=== PATIENT | female | born 1980 ===

== ENCOUNTER 2017-08-20 10:58 | Emergency (ER) | payer OTHER ==
[2017-08-20 11:35] LABS: RBC URINE 1 /hpf (0-3); URINE BILIRUBIN NEGATIVE (NEGATIVE); URINE BLOOD NEGATIVE (NEGATIVE); URINE COLOR Yellow (YELLOW); URINE GLUCOSE (UA) NORMAL (Normal); URINE KETONE NEGATIVE (NEGATIVE); URINE LEUKOCYTE ESTERASE NEG Leu/uL (Negative); URINE PROTEIN NEGATIVE (NEGATIVE); URINE UROBILINOGEN NORMAL mg/dL (0.2-1.0); WBC URINE < 1 /hpf (0-5)
--- NOTE | 2017-08-20 12:15 | C.PDOC ---
History Of Present Illness 36 year old female presents to the ED for evaluation of right-mid back x 1 week. Patient denies trauma. States symptoms are localized and worse with movement. Patient has not taken any pain meds. R MID BACK PAIN X 1 WEEK. NO TRAUMA LOCALIZED WORSE W MOVEMENT. NO PAIN MEDS TRIED. NAD BACK +SPASM R MID BACK AROM WO DIFF REMAINDER NEG Time Seen by Provider: 08/20/17 11:58 Chief Complaint (Nursing): Back Pain History Per: Patient History/Exam Limitations: no limitations Onset/Duration Of Symptoms: Hrs Current Symptoms Are (Timing): Still Present Quality Of Discomfort: "Pain" Previous Symptoms: Back Pain Associated Symptoms: denies: Incontinence, New Weakness, New Numbness Exacerbating Factor(s): Movement Additional History Per: Patient Past Medical History Reviewed: Historical Data, Nursing Documentation, Vital Signs Vital Signs: Last Vital Signs Temp 97.9 F 08/20/17 12:31 Pulse 68 08/20/17 12:31 Resp 18 08/20/17 12:31 BP 119/77 08/20/17 12:31 Pulse Ox 100 08/20/17 12:31 - Medical History PMH: No Chronic Diseases Surgical History: No Surg Hx Family History: States: Unknown Family Hx - Social History Hx Alcohol Use: No Hx Substance Use: No - Immunization History Hx Tetanus Toxoid Vaccination: No Hx Influenza Vaccination: No Hx Pneumococcal Vaccination: No Review Of Systems Musculoskeletal: Positive for: Back Pain (right mid-back ) Physical Exam - Physical Exam Appears: Non-toxic, No Acute Distress Skin: Normal Color, Warm, Dry Back: No Decreased ROM, Muscle Spasm (to right mid-back) Extremity: Normal ROM, Capillary Refill (less than 2 seconds ) Neurological/Psych: Oriented x3, Normal Speech, Normal Cognition Gait: Steady ED Course And Treatment O2 Sat by Pulse Oximetry: 96 (on RA) Pulse Ox Interpretation: Normal Progress Note: UA ordered and reviewed. Flexeril PO, Motrin PO, Tylenol PO, and Lidoderm TD administered. Disposition Counseled Patient/Family Regarding: Diagnosis, Need For Followup, Rx Given - Disposition Referrals: [facility] [Outside] [facility] [Outside] Disposition: HOME/ ROUTINE Disposition Time: 12:15 Condition: IMPROVED Prescriptions: Acetaminophen [Tylenol Extra Strength] 2 tab PO Q6 #30 tablet Ibuprofen [Motrin] 600 mg PO Q6 #30 tab Lidocaine 5% [Lidoderm] 1 ea TD PRN PRN #10 patch PRN Reason: Pain, Moderate (4-7) Instructions: Acute Low Back Pain (ED) Forms: [facility] (Kazakh), Work Excuse Print Language: VINCENTIAN - Clinical Impression Clinical Impression: Low back pain - Scribe Statement The provider has reviewed the documentation as recorded by the Scribe (Yahaira Moya) Provider Attestation: All medical record entries made by the Scribe were at my direction and personally dictated by me. I have reviewed the chart and agree that the record accurately reflects my personal performance of the history, physical exam, medical decision making, and the department course for this patient. I have also personally directed, reviewed, and agree with the discharge instructions and disposition.
[2017-08-20] MEDS ORDERED: Lidocaine 5% Patch TD STA (12:23)
[2017-08-20 12:32] VITALS: BP 119/77; PULSE 68; RESP 18; TEMP 97.9
[2017-08-20] MEDS ORDERED: Lidocaine 5% Patch TD ONE (12:35)
[2017-08-20 13:50] VITALS: O2SAT 96
== END 2017-08-20 12:43 | disposition home or self-care (01) ==
LOC: C.ER 10:58
DX: M54.5 Low back pain (principal)

== ENCOUNTER 2017-12-24 02:04 | Inpatient (IN) | payer OTHER ==
[2017-12-24] MEDS ORDERED: Iohexol 240 (50 ml) PO ONE (02:40)
--- NOTE | 2017-12-24 02:43 | C.PDOC ---
History Of Present Illness <Yg Chan R - Last Filed: 12/24/17 06:43> <Tez Morin M - Last Filed: 12/24/17 10:19> 37 y/o female presents to the ED complaining of right upper quadrant pain, onset around 8pm last night. Pain began after heavy alcohol intake yesterday. Patient denies any nausea, vomiting, diarrhea, or dysuria. (Yg Chan R) History Per: Patient History/Exam Limitations: no limitations Onset/Duration Of Symptoms: Days (x1) Current Symptoms Are (Timing): Still Present <Yg Chan R - Last Filed: 12/24/17 06:43> <Tez Morin M - Last Filed: 12/24/17 10:19> Time Seen by Provider: 12/24/17 02:37 Chief Complaint (Nursing): Abdominal Pain Past Medical History Reviewed: Historical Data, Nursing Documentation, Vital Signs - Medical History PMH: No Chronic Diseases Denies: Chronic Kidney Disease Surgical History: (x5) Family History: States: Unknown Family Hx - Social History Hx Alcohol Use: Yes Hx Substance Use: No - Immunization History Hx Tetanus Toxoid Vaccination: No Hx Influenza Vaccination: No Hx Pneumococcal Vaccination: No <Yg Chan - Last Filed: 12/24/17 06:43> Vital Signs: Last Vital Signs Temp 98.6 F 12/24/17 05:49 Pulse 77 12/24/17 05:49 Resp 22 12/24/17 05:49 BP 104/69 12/24/17 05:49 Pulse Ox 99 12/24/17 06:43 Review Of Systems Except As Marked, All Systems Reviewed And Found Negative. Constitutional: Negative for: Fever, Chills Gastrointestinal: Positive for: Abdominal Pain. Negative for: Nausea, Vomiting , Diarrhea Genitourinary: Negative for: Dysuria <Yg Chan - Last Filed: 12/24/17 06:43> Physical Exam - Physical Exam Appears: Non-toxic, No Acute Distress Skin: Normal Color, Warm, Dry Head: Atraumatic, Normacephalic Eye(s): bilateral: Normal Inspection, PERRL, EOMI Nose: Normal Oral Mucosa: Moist Neck: Normal ROM, Supple Chest: Symmetrical Cardiovascular: Rhythm Regular, No Murmur Respiratory: Normal Breath Sounds, No Accessory Muscle Use Gastrointestinal/Abdominal: Soft, Tenderness (to the RUQ), No Guarding, No Rebound Back: Normal Inspection, No CVA Tenderness, No Vertebral Tenderness Extremity: Bilateral: Atraumatic, No Pedal Edema, Normal Color And Temperature Neurological/Psych: Oriented x3, Normal Speech <Yg Chan R - Last Filed: 12/24/17 06:43> ED Course And Treatment - Laboratory Results Result Diagrams: 12/24/17 03:13 12/24/17 03:13 O2 Sat by Pulse Oximetry: 99 (RA) Pulse Ox Interpretation: Normal - CT Scan/US CT abdomen/pelvis Other Rad Studies (CT/US): Read By Radiologist, Radiology Report Reviewed CT/US Interpretation: FINDINGS: Limitations: Motion artifact - mild. Lower thorax: No acute findings. ABDOMEN: Liver: Fatty infiltration. Gallbladder and bile ducts: Gallstones. Mild gallbladder wall thickening. No significant ductal. dilation. Pancreas: No ductal dilation. No mass. Spleen: No splenomegaly. Adrenals: No mass. Kidneys and ureters: No mass. No hydronephrosis. Stomach and bowel: Probable underdistention of LEFT colon. No definite mural thickening. No. obstruction. Appendix: Normal caliber. No inflammation. PELVIS: Bladder: Unremarkable. Reproductive: Unremarkable as visualized. ABDOMEN and PELVIS: Intraperitoneal space: No significant fluid collection. No free air. Bones/joints: No acute fracture. Soft tissues: Pfannenstiel scar. Tiny umbilical hernia containing fat. Vasculature: Unremarkable. No aneurysm. Lymph nodes: No pathologically enlarged lymph nodes. IMPRESSION: 1. Cholelithiasis with mild gallbladder wall thickening concerning for acute cholecystitis. Consider. ultrasound. 2. Incidental/non- acute findings are described above. Thank you for allowing us to participate in the care of your patient. Dictated and Authenticated by: Eric Royal MD. 12/24/2017 5:04 AM Eastern Time ([place] & [place]) <Yg Chan R - Last Filed: 12/24/17 06:43> - Laboratory Results Result Diagrams: 12/24/17 03:13 12/24/17 03:13 <Tez Morin M - Last Filed: 12/24/17 10:19> Medical Decision Making <Yg Chan R - Last Filed: 12/24/17 06:43> <Tez Morin - Last Filed: 12/24/17 10:19> Medical Decision Making: Time: 2:40 Initial Plan: --Basic blood work --Lipase --Urinalysis --CT Abd/Pelvis w/ PO & IV contrast --IVF hydration --30 mg Toradol IVP --Pepcid 20 mg IVP 5:41 CT shows cholelithiasis with mild gallbladder wall thickening. Ordered US Abdomen 7:00 Dr. Morin to take over care, patient pending ultrasound (Yg Chan) Disposition Discussed With Dr.: Tez Morin (pending US abdomen) Doctor Will See Patient In The: ED - Disposition Disposition Time: 07:00 <Yg Chan - Last Filed: 12/24/17 06:43> Discussed With Dr.: Keira Guthrie Doctor Will See Patient In The: Hospital Counseled Patient/Family Regarding: Studies Performed, Diagnosis - Disposition Disposition Time: 10:18 <Tez Morin - Last Filed: 12/24/17 10:19> - Disposition Disposition: HOSPITALIZED Condition: FAIR Forms: [facility] [employer] [facility] ([place]) - Clinical Impression Clinical Impression: Cholecystitis, Abdominal pain - Scribe Statement The provider has reviewed the documentation as recorded by the Scribe <Yg Chan - Last Filed: 12/24/17 06:43> <Tez Morin - Last Filed: 12/24/17 10:19> - Scribe Statement Cathleen Norris (Yg Chan) Provider Attestation: All medical record entries made by the Scribe were at my direction and personally dictated by me. I have reviewed the chart and agree that the record accurately reflects my personal performance of the history, physical exam, medical decision making, and the department course for this patient. I have also personally directed, reviewed, and agree with the discharge instructions and disposition. (Yg Chan) Addendum <Yg Chan - Last Filed: 12/24/17 06:43> <Tez Morin - Last Filed: 12/24/17 10:19> Addendum: received patient in s/o pending ultrasound reading demonstrates positive gallbladder findings. Discussed with hospitalist and will admit to medical surgical floor. 12/24/17 10:17 (Tez Morin)
[2017-12-24 03:11] LABS: SQUAMOUS EPITHIAL 5 /hpf (0-5); URINE BILIRUBIN NEGATIVE (NEGATIVE); URINE BLOOD 1+ (NEGATIVE); URINE CLARITY Hazy (Clear); URINE COLOR Yellow (YELLOW); URINE GLUCOSE (UA) NORMAL (Normal); URINE LEUKOCYTE ESTERASE NEG Leu/uL (Negative); URINE PROTEIN NEGATIVE (NEGATIVE); URINE UROBILINOGEN NORMAL mg/dL (0.2-1.0)
[2017-12-24] MEDS ORDERED: Iohexol 240 (50 ml) ONE (03:13)
[2017-12-24 03:17] LABS: BASO % 0.4 % (0.0-2.0); EOS # 0.1 K/uL (0.0-0.7); EOS % 0.6 % (0.0-4.0); HEMOGLOBIN 14.2 g/dL (11.0-16.0); LYMPH # 1.8 K/uL (1.0-4.3); LYMPH % 19.7 % (20.0-40.0); MEAN CELL VOLUME 92.9 fL (81.0-99.0); MEAN CORPUSCULAR HEMOGLOBIN 32.4 pg (27.0-31.0); MEAN CORPUSCULAR HGB CONC 34.9 g/dL (33.0-37.0); MEAN PLATELET VOLUME 7.1 fL (7.2-11.7); MONO # 0.4 K/uL (0.0-0.8); MONO % 4.8 % (0.0-10.0); NEUT # 6.9 K/uL (1.8-7.0); NEUT % 74.5 % (50.0-75.0); RBC 4.39 Mil/uL (3.80-5.20); RED CELL DISTRIBUTION WIDTH 13.9 % (11.5-14.5); WHITE BLOOD COUNT 9.2 K/uL (4.8-10.8)
[2017-12-24 03:28] LABS: ALB/GLOB RATIO 1.1 (1.0-2.1); ALBUMIN 4.7 g/dL (3.5-5.0); ALT/SGPT 39 U/L (9-52); AST/SGOT 34 U/L (14-36); BLOOD UREA NITROGEN 11 mg/dL (7-17); CALCIUM 9.6 mg/dl (8.6-10.4); GFR AFRICAN-AMERICAN > 60; GFR NON-AFRICAN AMERICAN > 60; LIPASE 120 U/L (23-300)
[2017-12-24] MEDS ORDERED: Iohexol 350mg/ml 100 ML ONE (04:23)
--- NOTE | 2017-12-24 05:04 | CT ---
EXAM: CT Abdomen and Pelvis With Intravenous Contrast CLINICAL HISTORY: 37 years old, female; Pain; Abdominal pain; Additional info: Right sided abd pain TECHNIQUE: Axial computed tomography images of the abdomen and pelvis with intravenous contrast. All CT scans at this facility use one or more dose reduction techniques, viz.: automated exposure control; ma/kV adjustment per patient size (including targeted exams where dose is matched to indication; i.e. head); or iterative reconstruction technique. Coronal and sagittal reformatted images were created and reviewed. CONTRAST: 100 mL of [id number] administered intravenously. COMPARISON: No relevant prior studies available. FINDINGS: Limitations: Motion artifact - mild. Lower thorax: No acute findings. ABDOMEN: Liver: Fatty infiltration. Gallbladder and bile ducts: Gallstones. Mild gallbladder wall thickening. No significant ductal dilation. Pancreas: No ductal dilation. No mass. Spleen: No splenomegaly. Adrenals: No mass. Kidneys and ureters: No mass. No hydronephrosis. Stomach and bowel: Probable underdistention of LEFT colon. No definite mural thickening. No obstruction. Appendix: Normal caliber. No inflammation. PELVIS: Bladder: Unremarkable. Reproductive: Unremarkable as visualized. ABDOMEN and PELVIS: Intraperitoneal space: No significant fluid collection. No free air. Bones/joints: No acute fracture. Soft tissues: Pfannenstiel scar. Tiny umbilical hernia containing fat. Vasculature: Unremarkable. No aneurysm. Lymph nodes: No pathologically enlarged lymph nodes. IMPRESSION: 1. Cholelithiasis with mild gallbladder wall thickening concerning for acute cholecystitis. Consider ultrasound. 2. Incidental/non-acute findings are described above.
--- NOTE | 2017-12-24 08:30 | US ---
Right upper quadrant abdominal ultrasound History: Abdominal pain. Comparison: None available. Technique: Real-time sonography was performed through the right upper quadrant of the abdomen. Findings: Liver: 14.9 centimeters in length. Increased echogenicity of the hepatic parenchymal cortex suggestive for fatty infiltration versus hepatic parenchymal disease. Clinical correlation. Gallbladder: Cholelithiasis with calculi measuring up to 2.2 and 2.0 centimeters respectively. Associated sludge. Gallbladder wall thickening measuring up to 7.6 millimeters. Associated gallbladder wall edema. Negative sonographic Stubbs's sign. Common bile duct measures 3.5 millimeters, within normal limits. Limited visualization of the pancreas. Visualized aorta and IVC are preserved. Right kidney: 11.8 x 4.5 x 5.4 centimeters. No calculi or hydronephrosis. Impression: Cholelithiasis and sludge within the gallbladder with associated gallbladder wall thickening and edema. Gallbladder wall thickness measures up to 7.6 millimeters. Negative sonographic Stubbs's sign. Underlying cholecystitis cannot be excluded. Clinical correlation. Correlation with nuclear medicine study may be helpful if clinically indicated. Increased echogenicity of the hepatic parenchymal cortex suggestive for fatty infiltration versus hepatic parenchymal disease. Clinical correlation.
[2017-12-24] MEDS ORDERED: Piperacillin/Tazobact 3.375 GM in Sodium Chloride 100 ML IVPB STA (10:15)
[2017-12-24] MEDS ORDERED: Piperacillin/Tazobact 3.375 gm 100 ML IVPB ONE (10:20)
--- NOTE | 2017-12-24 11:30 | CP.PCM.CON ---
<Mason Ann Dot - Last Filed: 12/24/17 11:47> History of Present Illness - History of Present Illness History of Present Illness: General Surgery: Dr Negro Ms Griffin is a 37 year old female with no past medical history reported who presents to the ED for evaluation of RUQ abdominal pain. She reports 6 months of pain with 1-2 episodes per week. Current episode started last night at 8PM after eating. She reports one episode of nausea and nonbloody vomiting last night. Pain rated 7/10. She has not taken any medication for pain relief. She has not attempted to eat since last night, she reports previous pain episodes were worsened with food. Denies fever/chills, chest pain, palpitations, shortness of breath, cough, diarrhea, constipation, dysuria. PMHx: denies PSHx: x5 Allergies: NKDA Review of Systems - Review of Systems All systems: reviewed and no additional remarkable complaints except (as per hpi ) Past Patient History - Infectious Disease Hx of Infectious Diseases: None - Past Social History Smoking Status: Never Smoked - CARDIAC Hx Cardiac Disorders: No - PULMONARY Hx Respiratory Disorders: No - NEUROLOGICAL Hx Neurological Disorder: No - HEENT Hx HEENT Problems: No - RENAL Hx Chronic Kidney Disease: No - ENDOCRINE/METABOLIC Hx Endocrine Disorders: No - HEMATOLOGICAL/ONCOLOGICAL Hx Blood Disorders: No - INTEGUMENTARY Hx Dermatological Problems: No - MUSCULOSKELETAL/RHEUMATOLOGICAL Hx Musculoskeletal Disorders: No - GASTROINTESTINAL Hx Gastrointestinal Disorders: No - GENITOURINARY/GYNECOLOGICAL Hx Genitourinary Disorders: No - PSYCHIATRIC Hx Substance Use: No - SURGICAL HISTORY Hx Surgeries: Yes Hx Section: Yes (X5) - ANESTHESIA Hx Anesthesia: Yes Hx Anesthesia Reactions: No Meds Allergies/Adverse Reactions: Allergies Allergy/AdvReac Type Severity Reaction Status Date / Time No Known Allergies Allergy Verified 12/24/17 02:24 Physical Exam - Constitutional Appears: Well, No Acute Distress - Head Exam Head Exam: ATRAUMATIC, NORMOCEPHALIC - Respiratory Exam Respiratory Exam: Clear to Auscultation Bilateral, NORMAL BREATHING PATTERN. absent: Rales, Rhonchi, Wheezes - Cardiovascular Exam Cardiovascular Exam: REGULAR RHYTHM, RRR, +S1, +S2. absent: Diastolic murmur, Systolic Murmur - GI/Abdominal Exam GI & Abdominal Exam: Normal Bowel Sounds, Soft, Tenderness. absent: Distended, Guarding, Rebound - Extremities Exam Extremities exam: Negative for: pedal edema - Neurological Exam Neurological exam: Alert, Oriented x3 - Psychiatric Exam Psychiatric exam: Normal Affect, Normal Mood Results - Vital Signs Recent Vital Signs: Last Vital Signs Temp 98.6 F 12/24/17 05:49 Pulse 77 12/24/17 05:49 Resp 22 12/24/17 05:49 BP 104/69 12/24/17 05:49 Pulse Ox 99 12/24/17 06:43 - Labs Result Diagrams: 12/24/17 03:13 12/24/17 03:13 Labs: Laboratory Results - last 24 hr 12/24/17 12/24/17 12/24/17 03:00 03:06 03:13 WBC 9.2 RBC 4.39 Hgb 14.2 Hct 40.7 MCV 92.9 MCH 32.4 H MCHC 34.9 RDW 13.9 Plt Count 256 MPV 7.1 L Neut % (Auto) 74.5 Lymph % (Auto) 19.7 L Garza % (Auto) 4.8 Eos % (Auto) 0.6 Baso % (Auto) 0.4 Neut # (Auto) 6.9 Lymph # (Auto) 1.8 Garza # (Auto) 0.4 Eos # (Auto) 0.1 Baso # (Auto) 0.0 Sodium Potassium Chloride Carbon Dioxide Anion Gap BUN Creatinine Est GFR ( Amer) Est GFR (Non-Af Amer) Random Glucose Calcium Total Bilirubin AST ALT Alkaline Phosphatase Total Protein Albumin Globulin Albumin/Globulin Ratio Lipase Urine Color Yellow Urine Clarity Hazy Urine pH 5.0 Ur Specific [place] 1.019 Urine Protein Negative Urine Glucose (UA) Normal Urine Ketones Trace Urine Blood 1+ H Urine Nitrate Negative Urine Bilirubin Negative Urine Urobilinogen Normal Ur Leukocyte Esterase Neg Urine WBC (Auto) 2 Urine RBC (Auto) 1 Ur Squamous Epith Cells 5 Urine HCG, Qual Negative 12/24/17 03:13 WBC RBC Hgb Hct MCV MCH MCHC RDW Plt Count MPV Neut % (Auto) Lymph % (Auto) Garza % (Auto) Eos % (Auto) Baso % (Auto) Neut # (Auto) Lymph # (Auto) Garza # (Auto) Eos # (Auto) Baso # (Auto) Sodium 147 Potassium 3.6 Chloride 105 Carbon Dioxide 25 Anion Gap 21 H BUN 11 Creatinine 0.6 L Est GFR ( Amer) > 60 Est GFR (Non-Af Amer) > 60 Random Glucose 113 H Calcium 9.6 Total Bilirubin 0.5 AST 34 ALT 39 Alkaline Phosphatase 72 Total Protein 8.9 H Albumin 4.7 Globulin 4.2 H Albumin/Globulin Ratio 1.1 Lipase 120 Urine Color Urine Clarity Urine pH Ur Specific [place] Urine Protein Urine Glucose (UA) Urine Ketones Urine Blood Urine Nitrate Urine Bilirubin Urine Urobilinogen Ur Leukocyte Esterase Urine WBC (Auto) Urine RBC (Auto) Ur Squamous Epith Cells Urine HCG, Qual Assessment & Plan - Assessment and Plan (Free Text) Assessment: 37F presents with RUQ pain; cholecystitis Plan: npo IVF IV Abx plan for lap kimberlee sunday d/w Dr Marky Ann, PGY3 <Alberto Negro - Last Filed: 12/25/17 08:56> Meds - Medications Medications: Current Medications Lactated Ringer's (Lactated Ringer's) 1,000 mls @ 100 mls/hr IV .Q10H [facility] Last Admin: 12/25/17 06:23 Dose: 100 mls/hr Piperacillin Sod/Tazobactam (Sod 3.375 gm/ Sodium Chloride) 100 mls @ 200 mls/ hr IVPB Q6H KIKI PRN Reason: Protocol Last Admin: 12/25/17 03:58 Dose: 200 mls/hr Morphine Sulfate (Morphine) 2 mg IVP Q4 PRN PRN Reason: Pain, Mild (1-3) Results - Vital Signs Recent Vital Signs: Last Vital Signs Temp 99.5 F 12/25/17 07:05 Pulse 82 12/25/17 07:05 Resp 18 12/25/17 07:05 BP 132/67 12/25/17 07:05 Pulse Ox 96 12/25/17 07:05 - Labs Result Diagrams: 12/24/17 03:13 12/24/17 03:13 Labs: Laboratory Results - last 24 hr 12/24/17 13:43 PT 12.0 INR 1.1 Attending/Attestation - Attestation I have personally seen and examined this patient.: Yes I have fully participated in the care of the patient.: Yes I have reviewed all pertinent clinical information: Yes Notes (Text): Pt was seen and examine at bedside Agree with above note and assessment Pt with RUQ pain and Cholelithiasis RUQ tenderness Labs and radiology reviewed Ass: Acute Cholecystitis with Cholelithiasis Plan: Lap Cholecystectomy possible Open Consent NPO, IVF IV antibiotics Plan d.w pt in detail Risk and benefit explained in detail.
[2017-12-24] MEDS: Lactated Ringer's 1,000 ML IV SCH ×2 (12:16→22:02)
--- NOTE | 2017-12-24 12:42 | CP.PCM.HP ---
<Guru Flowers - Last Filed: 12/24/17 17:18> History of Present Illness - History of Present Illness History of Present Illness: PGY1 H+P for Dr. Hickey CC: RUQ pain Patient is a 37 year old female with no past medical history presenting with a complaint of RUQ pain. She has been experiencing RUQ pain intermittently for approximately 6 months, on average 1 to 2 times per week. The pain started yesterday around 8 pm that she describes as sharp in nature. The pain radiates to her the anterior portion of her right shoulder. She experienced nausea and vomiting x2 last night. Patient denied any bloody or coffee ground emesis. She has not taken pain medication. She has not attempted to eat since last night due to pain and nausea. She has noticed in the past that the pain worsens with food, particularly with greasy/fried food. Denies fevers, chills, diarrhea, constipation, chest pain, palpitations, SOB, headaches, numbness or tingling. PMH: Denies PSH: x 5, tubal ligation Family: unknown Social: denies tobacco, social alcohol (had 4 beers yesterday prior to abdominal pain), denies illicit drug use Meds: none Allergies: NKDA Present on Admission - Present on Admission Any Indicators Present on Admission: No Review of Systems - Review of Systems All systems: reviewed and no additional remarkable complaints except (as per HPI ) Past Patient History - Infectious Disease Hx of Infectious Diseases: None - Past Social History Smoking Status: Never Smoked - CARDIAC Hx Cardiac Disorders: No - PULMONARY Hx Respiratory Disorders: No - NEUROLOGICAL Hx Neurological Disorder: No - HEENT Hx HEENT Problems: No - RENAL Hx Chronic Kidney Disease: No - ENDOCRINE/METABOLIC Hx Endocrine Disorders: No - HEMATOLOGICAL/ONCOLOGICAL Hx Blood Disorders: No - INTEGUMENTARY Hx Dermatological Problems: No - MUSCULOSKELETAL/RHEUMATOLOGICAL Hx Musculoskeletal Disorders: No - GASTROINTESTINAL Hx Gastrointestinal Disorders: No - GENITOURINARY/GYNECOLOGICAL Hx Genitourinary Disorders: No - PSYCHIATRIC Hx Substance Use: No - SURGICAL HISTORY Hx Surgeries: Yes Hx Section: Yes (X5) - ANESTHESIA Hx Anesthesia: Yes Hx Anesthesia Reactions: No Meds Allergies/Adverse Reactions: Allergies Allergy/AdvReac Type Severity Reaction Status Date / Time No Known Allergies Allergy Verified 12/24/17 02:24 Physical Exam - Constitutional Appears: Non-toxic, No Acute Distress - Head Exam Head Exam: ATRAUMATIC, NORMOCEPHALIC - Eye Exam Eye Exam: EOMI, Normal appearance - ENT Exam ENT Exam: Mucous Membranes Moist - Respiratory Exam Respiratory Exam: Clear to Auscultation Bilateral, NORMAL BREATHING PATTERN. absent: Accessory Muscle Use, Rales, Rhonchi, Wheezes, Respiratory Distress - Cardiovascular Exam Cardiovascular Exam: REGULAR RHYTHM, +S1, +S2 - GI/Abdominal Exam GI & Abdominal Exam: Normal Bowel Sounds, Soft, Tenderness (RUQ tender to palpation). absent: Distended, Firm, Guarding - Extremities Exam Extremities exam: Positive for: pedal pulses present. Negative for: calf tenderness, pedal edema, tenderness - Back Exam Back exam: absent: CVA tenderness (L), CVA tenderness (R) - Neurological Exam Neurological exam: Alert, Oriented x3 - Psychiatric Exam Psychiatric exam: Normal Affect, Normal Mood - Skin Skin Exam: Dry, Warm Results - Vital Signs Recent Vital Signs: Last Vital Signs Temp 98.6 F 12/24/17 05:49 Pulse 77 12/24/17 05:49 Resp 22 12/24/17 05:49 BP 104/69 12/24/17 05:49 Pulse Ox 99 12/24/17 06:43 - Labs Result Diagrams: 12/24/17 03:13 12/24/17 03:13 Labs: Laboratory Results - last 24 hr 12/24/17 12/24/17 12/24/17 03:00 03:06 03:13 WBC 9.2 RBC 4.39 Hgb 14.2 Hct 40.7 MCV 92.9 MCH 32.4 H MCHC 34.9 RDW 13.9 Plt Count 256 MPV 7.1 L Neut % (Auto) 74.5 Lymph % (Auto) 19.7 L Ashley % (Auto) 4.8 Eos % (Auto) 0.6 Baso % (Auto) 0.4 Neut # (Auto) 6.9 Lymph # (Auto) 1.8 Ashley # (Auto) 0.4 Eos # (Auto) 0.1 Baso # (Auto) 0.0 Sodium Potassium Chloride Carbon Dioxide Anion Gap BUN Creatinine Est GFR ( Amer) Est GFR (Non-Af Amer) Random Glucose Calcium Total Bilirubin AST ALT Alkaline Phosphatase Total Protein Albumin Globulin Albumin/Globulin Ratio Lipase Urine Color Yellow Urine Clarity Hazy Urine pH 5.0 Ur Specific [place] 1.019 Urine Protein Negative Urine Glucose (UA) Normal Urine Ketones Trace Urine Blood 1+ H Urine Nitrate Negative Urine Bilirubin Negative Urine Urobilinogen Normal Ur Leukocyte Esterase Neg Urine WBC (Auto) 2 Urine RBC (Auto) 1 Ur Squamous Epith Cells 5 Urine HCG, Qual Negative 12/24/17 03:13 WBC RBC Hgb Hct MCV MCH MCHC RDW Plt Count MPV Neut % (Auto) Lymph % (Auto) Ashley % (Auto) Eos % (Auto) Baso % (Auto) Neut # (Auto) Lymph # (Auto) Ashley # (Auto) Eos # (Auto) Baso # (Auto) Sodium 147 Potassium 3.6 Chloride 105 Carbon Dioxide 25 Anion Gap 21 H BUN 11 Creatinine 0.6 L Est GFR ( Amer) > 60 Est GFR (Non-Af Amer) > 60 Random Glucose 113 H Calcium 9.6 Total Bilirubin 0.5 AST 34 ALT 39 Alkaline Phosphatase 72 Total Protein 8.9 H Albumin 4.7 Globulin 4.2 H Albumin/Globulin Ratio 1.1 Lipase 120 Urine Color Urine Clarity Urine pH Ur Specific [place] Urine Protein Urine Glucose (UA) Urine Ketones Urine Blood Urine Nitrate Urine Bilirubin Urine Urobilinogen Ur Leukocyte Esterase Urine WBC (Auto) Urine RBC (Auto) Ur Squamous Epith Cells Urine HCG, Qual Assessment & Plan - Assessment and Plan (Free Text) Plan: Cholecystitis General Surgery consulted, Dr. Negro Abdominal CT 12/24/17 - Cholelithiasis with mild gallbladder wall thickening concerning for acute cholecystitis. Consider ultrasound. Abdominal US 12/24/17 - Cholelithiasis and sludge within the gallbladder with associated gallbladder wall thickening and edema. Gallbladder wall thickness measures up to 7.6 millimeters. Negative sonographic Stubbs's sign. Underlying cholecystitis cannot be excluded. Clinical correlation. Correlation with nuclear medicine study may be helpful if clinically indicated. Increased echogenicity of the hepatic parenchymal cortex suggestive for fatty infiltration versus hepatic parenchymal disease. CXR - no acute disease. Patient scheduled for Lap Cholecystectomy tomorrow 12/25/17 * NPO * Zosyn 3.375mg IVPB q6h (started on 12/24) * Lactated Ringers 100ml/hr * Morphine 2mg IVP q4h PRN Prophylactic Care DVT - SCDs only: hold anticoagulation due to surgical procedure tomorrow. Case discussed with Dr. Ruperto Soaresn PGY1 <RupertoPrachi V - Last Filed: 12/24/17 17:52> Results - Vital Signs Recent Vital Signs: Last Vital Signs Temp 98.6 F 12/24/17 15:40 Pulse 58 L 12/24/17 15:40 Resp 20 12/24/17 15:40 BP 103/63 12/24/17 15:40 Pulse Ox 97 12/24/17 15:40 - Labs Result Diagrams: 12/24/17 03:13 12/24/17 03:13 Labs: Laboratory Results - last 24 hr 12/24/17 12/24/17 12/24/17 03:00 03:06 03:13 WBC 9.2 RBC 4.39 Hgb 14.2 Hct 40.7 MCV 92.9 MCH 32.4 H MCHC 34.9 RDW 13.9 Plt Count 256 MPV 7.1 L Neut % (Auto) 74.5 Lymph % (Auto) 19.7 L Ashley % (Auto) 4.8 Eos % (Auto) 0.6 Baso % (Auto) 0.4 Neut # (Auto) 6.9 Lymph # (Auto) 1.8 Ashley # (Auto) 0.4 Eos # (Auto) 0.1 Baso # (Auto) 0.0 PT INR Sodium Potassium Chloride Carbon Dioxide Anion Gap BUN Creatinine Est GFR ( Amer) Est GFR (Non-Af Amer) Random Glucose Calcium Total Bilirubin AST ALT Alkaline Phosphatase Total Protein Albumin Globulin Albumin/Globulin Ratio Lipase Urine Color Yellow Urine Clarity Hazy Urine pH 5.0 Ur Specific [place] 1.019 Urine Protein Negative Urine Glucose (UA) Normal Urine Ketones Trace Urine Blood 1+ H Urine Nitrate Negative Urine Bilirubin Negative Urine Urobilinogen Normal Ur Leukocyte Esterase Neg Urine WBC (Auto) 2 Urine RBC (Auto) 1 Ur Squamous Epith Cells 5 Urine HCG, Qual Negative 12/24/17 12/24/17 03:13 13:43 WBC RBC Hgb Hct MCV MCH MCHC RDW Plt Count MPV Neut % (Auto) Lymph % (Auto) Ashley % (Auto) Eos % (Auto) Baso % (Auto) Neut # (Auto) Lymph # (Auto) Ashley # (Auto) Eos # (Auto) Baso # (Auto) PT 12.0 INR 1.1 Sodium 147 Potassium 3.6 Chloride 105 Carbon Dioxide 25 Anion Gap 21 H BUN 11 Creatinine 0.6 L Est GFR ( Amer) > 60 Est GFR (Non-Af Amer) > 60 Random Glucose 113 H Calcium 9.6 Total Bilirubin 0.5 AST 34 ALT 39 Alkaline Phosphatase 72 Total Protein 8.9 H Albumin 4.7 Globulin 4.2 H Albumin/Globulin Ratio 1.1 Lipase 120 Urine Color Urine Clarity Urine pH Ur Specific [place] Urine Protein Urine Glucose (UA) Urine Ketones Urine Blood Urine Nitrate Urine Bilirubin Urine Urobilinogen Ur Leukocyte Esterase Urine WBC (Auto) Urine RBC (Auto) Ur Squamous Epith Cells Urine HCG, Qual Attending/Attestation - Attestation I have personally seen and examined this patient.: Yes I have fully participated in the care of the patient.: Yes I have reviewed all pertinent clinical information: Yes Notes (Text): Patient seen, examined and case discussed with day-time resident. Patient seen in [facility] Bed 2 in the Emergency Room at 12PM. Patient reporting right upper abdominal pain for the past 6 months, intermittent, couple times of week, worsened yesterday following beer consumption which prompted her to be nauseous and vomitting. I spoke with the patient at bedside, she has gallstones which is causing the worsening of her pain, exacerbated by fried fatty foods, which notes she does have abdominal pain following consumption of these items. I also indicated to her that on her CT scan and abdominal US it shows that her gallbladder is involved and causing this increase in pain. Patient was seen and evaluated by surgery, recommending for lap kimberlee tomorrow. Surgery and anesthesia to explain the risks and benefits of procedure prior to OR. Baseline chest xray and EKG obtained. Patient is obese but no other medical history to the best of her knowledge. Patient is EKG shows sinus bradycardia, she is asymptomatic. Per Detsky's cardiac risk index in noncardiac surgery, patient has low intraoperative risk associated with Class I 6% complications. Assessment/Plan 1) Cholelithiasis Cholecystitis * General Surgery consulted, Dr. Negro * Abdominal CT 12/24/17 - Cholelithiasis with mild gallbladder wall thickening concerning for acute cholecystitis. Consider ultrasound. * Abdominal US 12/24/17 - Cholelithiasis and sludge within the gallbladder with associated gallbladder wall thickening and edema. Gallbladder wall thickness measures up to 7.6 millimeters. Negative sonographic Stubbs's sign. Underlying cholecystitis cannot be excluded. Clinical correlation. Correlation with nuclear medicine study may be helpful if clinically indicated. Increased echogenicity of the hepatic parenchymal cortex suggestive for fatty infiltration versus hepatic parenchymal disease. * CXR - no acute disease. * Patient scheduled for Lap Cholecystectomy tomorrow 12/25/17 * NPO * Zosyn 3.375mg IVPB q6h (started on 12/24) * Lactated Ringers 100ml/hr * Morphine 2mg IVP q4h PRN 2) Obesity * Check Fasting lipid panel, hgba1c, TSH 3) Prophylactic Care * DVT PPx - SCDs only: hold anticoagulation due to surgical procedure tomorrow.
--- NOTE | 2017-12-24 13:37 | RAD ---
HISTORY: baseline COMPARISON: No prior. FINDINGS: LUNGS: No active pulmonary disease. PLEURA: No significant pleural effusion identified, no pneumothorax apparent. CARDIOVASCULAR: Normal. OSSEOUS STRUCTURES: No significant abnormalities. VISUALIZED UPPER ABDOMEN: Normal. OTHER FINDINGS: None. IMPRESSION: No active disease.
[2017-12-24 13:58] LABS: INR 1.1
[2017-12-24] MEDS ORDERED: Morphine 4 MG/ML VIAL IVP PRN (16:06)
[2017-12-24] MEDS: Piperacillin/Tazobact 3.375 GM in Sodium Chloride 0.9% 100 ML IVPB SCH ×2 (17:55→21:42)
[2017-12-25] MEDS: Piperacillin/Tazobact 3.375 GM in Sodium Chloride 0.9% 100 ML IVPB SCH ×4 (03:58→22:33)
[2017-12-25] MEDS: Lactated Ringer's 1,000 ML IV SCH ×3 (06:23→17:12)
[2017-12-25] MEDS ORDERED: Bupivacaine 0.25% Inj(30mL) IJ ONE (07:18)
[2017-12-25] MEDS ORDERED: Lidocaine/Epinephrine 1% 1:100000 10 ML IJ ONE (07:20)
[2017-12-25] MEDS ORDERED: Propofol 10 mg/ml Inj (20 ML) ONE (07:34)
[2017-12-25] MEDS ORDERED: Midazolam 2 MG/2 ML VIAL ONE (07:36)
[2017-12-25] MEDS ORDERED: Piperacillin/Tazobact 3.375 gm 100 ML IVPB ONE (07:59)
[2017-12-25] MEDS ORDERED: Neostigmine Methylsulfate 3mg/3ml Syringe IV ONE (09:05)
[2017-12-25] MEDS ORDERED: Succinylcholine Chloride 20 mg/ml Syr (5 ml) IV ONE (09:05)
[2017-12-25] MEDS ORDERED: Rocuronium 10 mg/ml (5 ml) ONE (09:05)
[2017-12-25] MEDS ORDERED: Oxycodone/Acetaminophen 5/325 mg Tab PO PRN (09:11)
[2017-12-25] MEDS ORDERED: Morphine 4 MG/ML VIAL IVP PRN (09:14)
--- NOTE | 2017-12-25 09:16 | PCM.SURG1 ---
Surgeon's Initial Post Op Note - Surgeon's Notes Surgeon: Dr. Negro Wire Inserter: Arlette Connolly PGY1 Type of Anesthesia: General Endo, Local Pre-Operative Diagnosis: Acute Cholecystitis Operative Findings: see operative report Post-Operative Diagnosis: same Operation Performed: Laparoscopic Cholecystectomy Specimen/Specimens Removed: Gallbladder Estimated Blood Loss: EBL {In ML}: 10 Blood Products Given: N/A Drains Used: No Drains Post-Op Condition: Good Date of Surgery/Procedure: 12/25/17 Time of Surgery/Procedure: 09:16
[2017-12-25] MEDS: HYDROmorphone 0.5 mg/0.5 ml ISec IVP PRN ×2 (09:34→09:52)
[2017-12-25] MEDS ORDERED: Lactated Ringer's 1,000 ML IV ONE (10:45)
[2017-12-25 13:48] LABS: BASO % 0.2 % (0.0-2.0); HEMOGLOBIN 12.7 g/dL (11.0-16.0); LYMPH # 0.7 K/uL (1.0-4.3); LYMPH % 5.4 % (20.0-40.0); MEAN CELL VOLUME 91.9 fL (81.0-99.0); MEAN CORPUSCULAR HEMOGLOBIN 31.5 pg (27.0-31.0); MEAN CORPUSCULAR HGB CONC 34.3 g/dL (33.0-37.0); MEAN PLATELET VOLUME 7.3 fL (7.2-11.7); MONO # 0.1 K/uL (0.0-0.8); MONO % 0.9 % (0.0-10.0); NEUT # 11.8 K/uL (1.8-7.0); NEUT % 93.5 % (50.0-75.0); PLATELET COUNT 213 K/uL (130-400); RBC 4.05 Mil/uL (3.80-5.20); RED CELL DISTRIBUTION WIDTH 13.3 % (11.5-14.5); WHITE BLOOD COUNT 12.6 K/uL (4.8-10.8)
[2017-12-25 14:13] LABS: BANDS 2 % (0-2); BASOPHIL 1 % (0-2); LYMPHOCYTE 6 % (20-40); MONOCYTE 1 % (0-10); NEUTROPHIL 90 % (50-75); PLATELET ESTIMATE NORMAL (NORMAL); TOTAL CELLS COUNTED 100
[2017-12-25 14:32] LABS: LDL CHOLESTEROL 117 mg/dL (0-129)
[2017-12-25 14:41] LABS: ALB/GLOB RATIO 1.2 (1.0-2.1); ALBUMIN 3.8 g/dL (3.5-5.0); ALT/SGPT 136 U/L (9-52); AST/SGOT 187 U/L (14-36); BLOOD UREA NITROGEN 8 mg/dL (7-17); CALCIUM 8.6 mg/dl (8.6-10.4); GFR AFRICAN-AMERICAN > 60; GFR NON-AFRICAN AMERICAN > 60; HDL CHOLESTEROL 35 mg/dL (30-70)
--- NOTE | 2017-12-25 17:15 | CP.PCM.PN ---
<Prachi Hickey V - Last Filed: 12/25/17 17:37> Objective - Vital Signs/Intake and Output Vital Signs (last 24 hours): Temp Pulse Resp BP Pulse Ox 97.9 F 57 L 20 94/58 L 95 12/25/17 15:06 12/25/17 15:06 12/25/17 15:06 12/25/17 15:06 12/25/17 15:06 Intake and Output: 12/25/17 12/25/17 06:59 18:59 Intake Total 800 1450 Balance 800 1450 - Medications Medications: Current Medications Lactated Ringer's (Lactated Ringer's) 1,000 mls @ 100 mls/hr IV .Q10H KIKI Last Admin: 12/25/17 17:12 Dose: 100 mls/hr Piperacillin Sod/Tazobactam (Sod 3.375 gm/ Sodium Chloride) 100 mls @ 200 mls/ hr IVPB Q6H KIKI PRN Reason: Protocol Last Admin: 12/25/17 17:12 Dose: 200 mls/hr Morphine Sulfate (Morphine) 2 mg IVP Q4 PRN PRN Reason: Pain, severe (8-10) Ondansetron HCl (Zofran Inj) 4 mg IVP Q6H PRN PRN Reason: Nausea/Vomiting Oxycodone/Acetaminophen (Percocet 5/325 Mg Tab) 1 tab PO Q4H PRN PRN Reason: Pain, moderate (4-7) Stop: 12/28/17 09:12 - Labs Labs: 12/25/17 13:36 12/25/17 13:36 PT 12.0 SECONDS (9.7-12.2) 12/24/17 13:43 INR 1.1 12/24/17 13:43 Attending/Attestation - Attestation I have personally seen and examined this patient.: Yes I have fully participated in the care of the patient.: Yes I have reviewed all pertinent clinical information, including history, physical exam and plan: Yes Notes (Text): Patient seen, examined, and case discussed with resident. Patient [facility]. Patient is pain controlled, and has dressing noted on abdomen. Patient's blood work is post-operative laparoscopic cholecystectomy POD. We will monitor liver function tests to make sure they down trend and elevated white count is post-operative rise. We will follow-up with surgery to determine when patient is stable for discharge. Assessment/Plan 1) Cholelithiasis Cholecystitis * General Surgery consulted, Dr. Negro * Abdominal CT 12/24/17 - Cholelithiasis with mild gallbladder wall thickening concerning for acute cholecystitis. Consider ultrasound. * Abdominal US 12/24/17 - Cholelithiasis and sludge within the gallbladder with associated gallbladder wall thickening and edema. Gallbladder wall thickness measures up to 7.6 millimeters. Negative sonographic Stubbs's sign. Underlying cholecystitis cannot be excluded. Clinical correlation. Correlation with nuclear medicine study may be helpful if clinically indicated. Increased echogenicity of the hepatic parenchymal cortex suggestive for fatty infiltration versus hepatic parenchymal disease. * CXR - no acute disease. * 12/25/17: Laparoscopic Cholecystectomy 2) Obesity * Hgba1c: 5.4 * TSH: 0.16-->will recheck post-operative given patient has had surgery * Lipid panel: T, Cholestrol: 158, LDL: 117, HDL: 35 3) Transaminitis * Abdominal CT 12/24/17 - Cholelithiasis with mild gallbladder wall thickening concerning for acute cholecystitis. Consider ultrasound. * Abdominal US 12/24/17 - Cholelithiasis and sludge within the gallbladder with associated gallbladder wall thickening and edema. Gallbladder wall thickness measures up to 7.6 millimeters. Negative sonographic Stubbs's sign. Underlying cholecystitis cannot be excluded. Clinical correlation. Correlation with nuclear medicine study may be helpful if clinically indicated. Increased echogenicity of the hepatic parenchymal cortex suggestive for fatty infiltration versus hepatic parenchymal disease. * Rise post-operative * Will monitor LFTs * Clarified surgical pain prn to oxycodone PRN given tylenol will contribute to rise 4) Prophylactic Care * DVT PPx - SCDs only: hold anticoagulation due to surgical procedure today * patient is low risk. Disposition: Monitor liver function tests and coordinate discharge planning hopefully tomorrow. <Guru Flowers - Last Filed: 12/25/17 19:39> Subjective - Date & Time of Evaluation Date of Evaluation: 12/25/17 Time of Evaluation: 11:35 - Subjective Subjective: PGY1 Medicine Note for Dr. Hickey Patient seen and examined this morning after patient had lap kimberlee. Patient states she is feeling well and is currently not in any pain. She is still NPO at the time of the exam. She is hoping that she will be able to go home tomorrow. Objective - Vital Signs/Intake and Output Vital Signs (last 24 hours): Temp Pulse Resp BP Pulse Ox 97.9 F 57 L 20 94/58 L 95 12/25/17 15:06 12/25/17 15:06 12/25/17 15:06 12/25/17 15:06 12/25/17 15:06 Intake and Output: 12/25/17 12/25/17 06:59 18:59 Intake Total 800 1450 Balance 800 1450 - Medications Medications: Current Medications Lactated Ringer's (Lactated Ringer's) 1,000 mls @ 100 mls/hr IV .Q10H [facility] Last Admin: 12/25/17 17:12 Dose: 100 mls/hr Piperacillin Sod/Tazobactam (Sod 3.375 gm/ Sodium Chloride) 100 mls @ 200 mls/ hr IVPB Q6H KIKI PRN Reason: Protocol Last Admin: 12/25/17 17:12 Dose: 200 mls/hr Morphine Sulfate (Morphine) 2 mg IVP Q4 PRN PRN Reason: Pain, severe (8-10) Ondansetron HCl (Zofran Inj) 4 mg IVP Q6H PRN PRN Reason: Nausea/Vomiting Oxycodone/Acetaminophen (Percocet 5/325 Mg Tab) 1 tab PO Q4H PRN PRN Reason: Pain, moderate (4-7) Stop: 12/28/17 09:12 - Labs Labs: 12/25/17 13:36 12/25/17 13:36 PT 12.0 SECONDS (9.7-12.2) 12/24/17 13:43 INR 1.1 12/24/17 13:43 - Constitutional Appears: Non-toxic, No Acute Distress - Head Exam Head Exam: ATRAUMATIC, NORMOCEPHALIC - Eye Exam Eye Exam: EOMI, Normal appearance - ENT Exam ENT Exam: Mucous Membranes Moist - Respiratory Exam Respiratory Exam: Clear to Ausculation Bilateral, NORMAL BREATHING PATTERN. absent: Accessory Muscle Use, Rales, Rhonchi, Wheezes, Respiratory Distress - Cardiovascular Exam Cardiovascular Exam: REGULAR RHYTHM, +S1, +S2. absent: JVD - GI/Abdominal Exam GI & Abdominal Exam: Soft, Normal Bowel Sounds. absent: Distended, Firm, Guarding, Rigid, Tenderness (mild soreness, diffuse) Additional comments: surgical incisions covered, strike-through on midline incision bandage. - Extremities Exam Extremities Exam: absent: Calf Tenderness, Pedal Edema - Neurological Exam Neurological Exam: Alert, Awake, Oriented x3 - Psychiatric Exam Additional comments: Patient is tired, but expected as she is post-op - Skin Skin Exam: Dry, Warm Assessment and Plan - Assessment and Plan (Free Text) Plan: Cholecystitis General Surgery consulted, Dr. Negro Abdominal CT 12/24/17 - Cholelithiasis with mild gallbladder wall thickening concerning for acute cholecystitis. Consider ultrasound. Abdominal US 12/24/17 - Cholelithiasis and sludge within the gallbladder with associated gallbladder wall thickening and edema. Gallbladder wall thickness measures up to 7.6 millimeters. Negative sonographic Stubbs's sign. Underlying cholecystitis cannot be excluded. Clinical correlation. Correlation with nuclear medicine study may be helpful if clinically indicated. Increased echogenicity of the hepatic parenchymal cortex suggestive for fatty infiltration versus hepatic parenchymal disease. CXR - no acute disease. s/p for Lap Cholecystectomy on 12/25/17 * Regular Diet * Zosyn 3.375mg IVPB q6h (started on 12/24) * Lactated Ringers 100ml/hr * Morphine 2mg IVP q4h PRN * Zofran 4mg IVP q6h PRN * Oxycodone 5mg PO q4h PRN Prophylactic Care DVT - SCDs only: hold anticoagulation due to surgical procedure tomorrow. DISPO: Hopefully discharge home in the morning if cleared by surgery. Case discussed with Dr. Ruperto Garvey Kristie PGY1
[2017-12-25] MEDS ORDERED: oxyCODONE 5 mg Immediate Release Tab PO PRN (17:45)
--- NOTE | 2017-12-25 19:57 | OP ---
PROCEDURE DATE: 12/25/2017 PREOPERATIVE DIAGNOSIS: Acute cholecystitis and cholelithiasis. POSTOPERATIVE DIAGNOSIS: Acute cholecystitis and cholelithiasis. PROCEDURE DONE: Laparoscopic cholecystectomy. SURGEON: The procedure was done by Alberto elón MD. SHELL TRIM OPERATOR: Dr. Bobby Connolly, PGY-1. TYPE OF ANESTHESIA: General endotracheal tube anesthesia. ESTIMATED BLOOD LOSS: Around 10 mL. DRAINS: None. PATHOLOGY: Gallbladder with a gallstone was sent for the pathology. COMPLICATIONS: None. INTRAOPERATIVE FINDINGS: The patient had changes of acute cholecystitis and cholelithiasis. DESCRIPTION OF PROCEDURE: On intraoperative steps, this is a 37-year-old female, who was diagnosed with acute cholecystitis and cholelithiasis and patient was consented for laparoscopic cholecystectomy, possible open, brought to the OR, placed supine on the operating table. After the induction of the anesthesia, the abdomen was prepped and draped in the usual sterile fashion. Supraumbilical transverse incision was made after incising the skin, subcutaneous tissue, and the fascia. Kely port was placed and pneumoperitoneum was created. Another 12-mm port was placed in the suprapubic region and another two 5-mm ports were placed in the left upper quadrant and in right upper quadrant in the midclavicular and anterior axillary line. After that, a grasper and dissector were introduced, and the gallbladder was retracted cranially. Calot's triangle dissection was done. Cystic duct and cystic artery were identified and clipped at 3 places and cut in between 2 clips near the gallbladder, and gallbladder was dissected free from the gallbladder fossa, taken in an EndoCatch bag, taken out through the umbilical port site and sent off the table for the pathology. There was proper hemostasis in each and every part of the procedure. There was no apparent complication. Count of the instrument and gauze was correct. The patient was extubated in the OR and sent to the postanesthesia care unit in stable condition. The umbilical port site was closed in two layers, fascia with 0-Vicryl interrupted suture, skin with a 4-0 Monocryl at all the port sites, and dry sterile dressing was applied. Alberto Negro MD Name, [facility] # [id number]
[2017-12-26] MEDS: Piperacillin/Tazobact 3.375 GM in Sodium Chloride 0.9% 100 ML IVPB SCH ×3 (04:01→16:29)
[2017-12-26] MEDS: Lactated Ringer's 1,000 ML IV SCH ×2 (04:02→14:22)
[2017-12-26 07:46] VITALS: O2SAT 95
[2017-12-26 08:12] LABS: BASO % 0.1 % (0.0-2.0); HEMOGLOBIN 11.9 g/dL (11.0-16.0); LYMPH # 1.9 K/uL (1.0-4.3); MEAN CELL VOLUME 92.2 fL (81.0-99.0); MEAN CORPUSCULAR HEMOGLOBIN 31.7 pg (27.0-31.0); MEAN CORPUSCULAR HGB CONC 34.3 g/dL (33.0-37.0); MEAN PLATELET VOLUME 7.1 fL (7.2-11.7); MONO # 0.9 K/uL (0.0-0.8); MONO % 7.4 % (0.0-10.0); NEUT # 9.6 K/uL (1.8-7.0); NEUT % 77.5 % (50.0-75.0); RBC 3.75 Mil/uL (3.80-5.20); RED CELL DISTRIBUTION WIDTH 13.6 % (11.5-14.5); WHITE BLOOD COUNT 12.4 K/uL (4.8-10.8)
[2017-12-26 08:43] LABS: ALB/GLOB RATIO 1.1 (1.0-2.1); ALBUMIN 3.4 g/dL (3.5-5.0); ALT/SGPT 118 U/L (9-52); AST/SGOT 93 U/L (14-36); BLOOD UREA NITROGEN 6 mg/dL (7-17); CALCIUM 8.8 mg/dl (8.6-10.4); GFR AFRICAN-AMERICAN > 60; GFR NON-AFRICAN AMERICAN > 60
[2017-12-26] MEDS ORDERED: Potassium Chloride 20 mEq ER Tab PO ONE (08:46)
[2017-12-26 08:56] LABS: HEPATITIS B SURFACE AG Negative (NEGATIVE)
[2017-12-26 09:04] LABS: HEPATITIS A IGM NEGATIVE (NEGATIVE); HEPATITIS B CORE AB NEGATIVE (NEGATIVE)
[2017-12-26 09:14] LABS: HEPATITIS C ANTIBODY NEGATIVE (NEGATIVE)
--- NOTE | 2017-12-26 18:21 | CP.PCM.DIS ---
<Guru Flowers - Last Filed: 12/27/17 06:50> Provider - Provider Date of Admission: 12/24/17 10:16 Attending physician: Prachi Hickey DO Consults: General Surgery - [facility] Time Spent in preparation of Discharge (in minutes): 30 Hospital Course - Lab Results Lab Results: Most Recent Lab Values WBC 12.4 K/uL (4.8-10.8) H 12/26/17 07:50 RBC 3.75 Mil/uL (3.80-5.20) L 12/26/17 07:50 Hgb 11.9 g/dL (11.0-16.0) 12/26/17 07:50 Hct 34.6 % (34.0-47.0) 12/26/17 07:50 MCV 92.2 fL (81.0-99.0) 12/26/17 07:50 MCH 31.7 pg (27.0-31.0) H 12/26/17 07:50 MCHC 34.3 g/dL (33.0-37.0) 12/26/17 07:50 RDW 13.6 % (11.5-14.5) 12/26/17 07:50 Plt Count 205 K/uL (130-400) 12/26/17 07:50 MPV 7.1 fL (7.2-11.7) L 12/26/17 07:50 Neut % (Auto) 77.5 % (50.0-75.0) H 12/26/17 07:50 Lymph % (Auto) 15.0 % (20.0-40.0) L 12/26/17 07:50 [place] % (Auto) 7.4 % (0.0-10.0) 12/26/17 07:50 Eos % (Auto) 0.0 % (0.0-4.0) 12/26/17 07:50 Baso % (Auto) 0.1 % (0.0-2.0) 12/26/17 07:50 Neut # (Auto) 9.6 K/uL (1.8-7.0) H 12/26/17 07:50 Lymph # (Auto) 1.9 K/uL (1.0-4.3) 12/26/17 07:50 [place] # (Auto) 0.9 K/uL (0.0-0.8) H 12/26/17 07:50 Eos # (Auto) 0.0 K/uL (0.0-0.7) 12/26/17 07:50 Baso # (Auto) 0.0 K/uL (0.0-0.2) 12/26/17 07:50 Neutrophils % (Manual) 90 % (50-75) H 12/25/17 13:36 Band Neutrophils % 2 % (0-2) 12/25/17 13:36 Lymphocytes % (Manual) 6 % (20-40) L 12/25/17 13:36 Monocytes % (Manual) 1 % (0-10) 12/25/17 13:36 Basophils % (Manual) 1 % (0-2) 12/25/17 13:36 Platelet Estimate Normal (NORMAL) 12/25/17 13:36 RBC Morphology Normal 12/25/17 13:36 PT 12.0 SECONDS (9.7-12.2) 12/24/17 13:43 INR 1.1 12/24/17 13:43 Sodium 142 mmol/L (132-148) 12/26/17 07:50 Potassium 3.5 mmol/L (3.6-5.2) L 12/26/17 07:50 Chloride 105 mmol/L (98-107) 12/26/17 07:50 Carbon Dioxide 25 mmol/L (22-30) 12/26/17 07:50 Anion Gap 16 (10-20) 12/26/17 07:50 BUN 6 mg/dL (7-17) L 12/26/17 07:50 Creatinine 0.6 mg/dL (0.7-1.2) L 12/26/17 07:50 Est GFR ( Amer) > 60 12/26/17 07:50 Est GFR (Non-Af Amer) > 60 12/26/17 07:50 Random Glucose 100 mg/dL (65-105) 12/26/17 07:50 Hemoglobin A1c 5.4 % (4.2-6.5) 12/25/17 13:36 Calcium 8.8 mg/dl (8.6-10.4) 12/26/17 07:50 Magnesium 1.9 mg/dL (1.6-2.3) 12/26/17 07:50 Total Bilirubin 0.6 mg/dL (0.2-1.3) 12/26/17 07:50 AST 93 U/L (14-36) H D 12/26/17 07:50 ALT 118 U/L (9-52) H 12/26/17 07:50 Alkaline Phosphatase 48 U/L (38-126) 12/26/17 07:50 Total Protein 6.6 g/dL (6.3-8.3) 12/26/17 07:50 Albumin 3.4 g/dL (3.5-5.0) L 12/26/17 07:50 Globulin 3.2 gm/dL (2.2-3.9) 12/26/17 07:50 Albumin/Globulin Ratio 1.1 (1.0-2.1) 12/26/17 07:50 Triglycerides 48 mg/dL (0-149) 12/25/17 13:36 Cholesterol 158 mg/dL (0-199) 12/25/17 13:36 LDL Cholesterol Direct 117 mg/dL (0-129) 12/25/17 13:36 HDL Cholesterol 35 mg/dL (30-70) 12/25/17 13:36 Lipase 120 U/L (23-300) 12/24/17 03:13 TSH 3rd Generation 0.16 mIU/L (0.46-4.68) L 12/25/17 13:36 Urine Color Yellow (YELLOW) 12/24/17 03:06 Urine Clarity Hazy (Clear) 12/24/17 03:06 Urine pH 5.0 (5.0-8.0) 12/24/17 03:06 Ur Specific [place] 1.019 (1.003-1.030) 12/24/17 03:06 Urine Protein Negative mg/dL (NEGATIVE) 12/24/17 03:06 Urine Glucose (UA) Normal mg/dL (Normal) 12/24/17 03:06 Urine Ketones Trace mg/dL (NEGATIVE) 12/24/17 03:06 Urine Blood 1+ (NEGATIVE) H 12/24/17 03:06 Urine Nitrate Negative (NEGATIVE) 12/24/17 03:06 Urine Bilirubin Negative (NEGATIVE) 12/24/17 03:06 Urine Urobilinogen Normal mg/dL (0.2-1.0) 12/24/17 03:06 Ur Leukocyte Esterase Neg Paul/uL (Negative) 12/24/17 03:06 Urine WBC (Auto) 2 /hpf (0-5) 12/24/17 03:06 Urine RBC (Auto) 1 /hpf (0-3) 12/24/17 03:06 Ur Squamous Epith Cells 5 /hpf (0-5) 12/24/17 03:06 Urine HCG, Qual Negative (NEGATIVE) 12/24/17 03:00 Hepatitis A IgM Ab Negative (NEGATIVE) 12/26/17 07:50 Hep Bs Antigen Negative (NEGATIVE) 12/26/17 07:50 Hep B Core IgM Ab Negative (NEGATIVE) 12/26/17 07:50 Hepatitis C Antibody Negative (NEGATIVE) 12/26/17 07:50 Blood Type O POSITIVE 12/25/17 13:36 Antibody Screen Negative 12/25/17 13:36 - Hospital Course Hospital Course: As per admission documentation Patient is a 37 year old female with no past medical history presenting with a complaint of RUQ pain. She has been experiencing RUQ pain intermittently for approximately 6 months, on average 1 to 2 times per week. The pain started yesterday around 8 pm that she describes as sharp in nature. The pain radiates to her the anterior portion of her right shoulder. She experienced nausea and vomiting x2 last night. Patient denied any bloody or coffee ground emesis. She has not taken pain medication. She has not attempted to eat since last night due to pain and nausea. She has noticed in the past that the pain worsens with food, particularly with greasy/fried food. Denies fevers, chills, diarrhea, constipation, chest pain, palpitations, SOB, headaches, numbness or tingling. Hospital Course Patient was admitted for Cholecystitis. General Surgery consulted, Dr. Negro. Abdominal CT 12/24/17 - Cholelithiasis with mild gallbladder wall thickening concerning for acute cholecystitis. Consider ultrasound. Abdominal US 12/24/17 - Cholelithiasis and sludge within the gallbladder with associated gallbladder wall thickening and edema. Gallbladder wall thickness measures up to 7.6 millimeters. Negative sonographic Stubbs's sign. Underlying cholecystitis cannot be excluded. Clinical correlation. Correlation with nuclear medicine study may be helpful if clinically indicated. Increased echogenicity of the hepatic parenchymal cortex suggestive for fatty infiltration versus hepatic parenchymal disease. CXR - no acute disease. Patient went to the OR on 12/25 for Lap Ame with Dr. Negro. Successful surgery with no complication. Patient was monitored for 24 hours post-op. She was tolerating a diet and had return of bowel function. She was stable throughout her hospital course. She was discharged on 12/26 with the following instructions. Discharge Instructions Patient is to be discharged home per Dr. Hickey. Patient is to follow up with the [facility]. Please call and schedule an appointment within one week of being discharged. Patient is to follow up with Dr. Negro within week of being discharged. Please go directly to the nearest emergency location if you experience any new or worsening symptoms. Discharge Medicine Oxycodone 5mg PO q6h prn for severe pain - dispensed 8 tabs [facility]: [address] [place] [address] - Constitutional Appears: Non-toxic, No Acute Distress - Head Exam Head Exam: ATRAUMATIC, NORMOCEPHALIC - Eye Exam Eye Exam: EOMI, Normal appearance - ENT Exam ENT Exam: Mucous Membranes Moist - Respiratory Exam Respiratory Exam: Clear to Ausculation Bilateral, NORMAL BREATHING PATTERN. absent: Accessory Muscle Use, Rales, Rhonchi, Wheezes, Respiratory Distress - Cardiovascular Exam Cardiovascular Exam: REGULAR RHYTHM, +S1, +S2. absent: JVD - GI/Abdominal Exam GI & Abdominal Exam: Soft, Normal Bowel Sounds. absent: Distended, Firm, Guarding, Rigid, Tenderness (mild soreness, diffuse) Additional comments: surgical incisions covered, strike-through on midline incision bandage. - Extremities Exam Extremities Exam: absent: Calf Tenderness, Pedal Edema - Neurological Exam Neurological Exam: Alert, Awake, Oriented x3 - Skin Skin Exam: Dry, Warm Discharge Exam - Head Exam Head Exam: ATRAUMATIC, NORMOCEPHALIC Discharge Plan - Discharge Medications Prescriptions: oxyCODONE [oxyCODONE Immediate Release Tab] 5 mg PO Q6H PRN #8 tab PRN Reason: Pain, Severe (8-10) - Follow Up Plan Condition: FAIR Disposition: HOME/ ROUTINE Instructions: Cholecystectomy, Laparoscopic Surgery, Oxycodone, Cholecystitis ( DC) Additional Instructions: Patient is to be discharged home per Dr. Hickey. Patient is to follow up with the [facility]. Please call and schedule an appointment within one week of being discharged. Patient is to follow up with Dr. Negro within week of being discharged. Please go directly to the nearest emergency location if you experience any new or worsening symptoms. Discharge Medicine Oxycodone 5mg PO q6h prn for severe pain - dispensed 8 tabs [facility]: [address] [place] [address] Referrals: Alberto Negro MD [Staff Provider] - 7 Days <Prachi Hickey V - Last Filed: 12/27/17 07:50> Provider - Provider Date of Admission: 12/24/17 10:16 Attending physician: Prachi Hickey DO Time Spent in preparation of Discharge (in minutes): 31 Hospital Course - Lab Results Lab Results: Most Recent Lab Values WBC 12.4 K/uL (4.8-10.8) H 12/26/17 07:50 RBC 3.75 Mil/uL (3.80-5.20) L 12/26/17 07:50 Hgb 11.9 g/dL (11.0-16.0) 12/26/17 07:50 Hct 34.6 % (34.0-47.0) 12/26/17 07:50 MCV 92.2 fL (81.0-99.0) 12/26/17 07:50 MCH 31.7 pg (27.0-31.0) H 12/26/17 07:50 MCHC 34.3 g/dL (33.0-37.0) 12/26/17 07:50 RDW 13.6 % (11.5-14.5) 12/26/17 07:50 Plt Count 205 K/uL (130-400) 12/26/17 07:50 MPV 7.1 fL (7.2-11.7) L 12/26/17 07:50 Neut % (Auto) 77.5 % (50.0-75.0) H 12/26/17 07:50 Lymph % (Auto) 15.0 % (20.0-40.0) L 12/26/17 07:50 [place] % (Auto) 7.4 % (0.0-10.0) 12/26/17 07:50 Eos % (Auto) 0.0 % (0.0-4.0) 12/26/17 07:50 Baso % (Auto) 0.1 % (0.0-2.0) 12/26/17 07:50 Neut # (Auto) 9.6 K/uL (1.8-7.0) H 12/26/17 07:50 Lymph # (Auto) 1.9 K/uL (1.0-4.3) 12/26/17 07:50 [place] # (Auto) 0.9 K/uL (0.0-0.8) H 12/26/17 07:50 Eos # (Auto) 0.0 K/uL (0.0-0.7) 12/26/17 07:50 Baso # (Auto) 0.0 K/uL (0.0-0.2) 12/26/17 07:50 Neutrophils % (Manual) 90 % (50-75) H 12/25/17 13:36 Band Neutrophils % 2 % (0-2) 12/25/17 13:36 Lymphocytes % (Manual) 6 % (20-40) L 12/25/17 13:36 Monocytes % (Manual) 1 % (0-10) 12/25/17 13:36 Basophils % (Manual) 1 % (0-2) 12/25/17 13:36 Platelet Estimate Normal (NORMAL) 12/25/17 13:36 RBC Morphology Normal 12/25/17 13:36 PT 12.0 SECONDS (9.7-12.2) 12/24/17 13:43 INR 1.1 12/24/17 13:43 Sodium 142 mmol/L (132-148) 12/26/17 07:50 Potassium 3.5 mmol/L (3.6-5.2) L 12/26/17 07:50 Chloride 105 mmol/L (98-107) 12/26/17 07:50 Carbon Dioxide 25 mmol/L (22-30) 12/26/17 07:50 Anion Gap 16 (10-20) 12/26/17 07:50 BUN 6 mg/dL (7-17) L 12/26/17 07:50 Creatinine 0.6 mg/dL (0.7-1.2) L 12/26/17 07:50 Est GFR ( Amer) > 60 12/26/17 07:50 Est GFR (Non-Af Amer) > 60 12/26/17 07:50 Random Glucose 100 mg/dL (65-105) 12/26/17 07:50 Hemoglobin A1c 5.4 % (4.2-6.5) 12/25/17 13:36 Calcium 8.8 mg/dl (8.6-10.4) 12/26/17 07:50 Magnesium 1.9 mg/dL (1.6-2.3) 12/26/17 07:50 Total Bilirubin 0.6 mg/dL (0.2-1.3) 12/26/17 07:50 AST 93 U/L (14-36) H D 12/26/17 07:50 ALT 118 U/L (9-52) H 12/26/17 07:50 Alkaline Phosphatase 48 U/L (38-126) 12/26/17 07:50 Total Protein 6.6 g/dL (6.3-8.3) 12/26/17 07:50 Albumin 3.4 g/dL (3.5-5.0) L 12/26/17 07:50 Globulin 3.2 gm/dL (2.2-3.9) 12/26/17 07:50 Albumin/Globulin Ratio 1.1 (1.0-2.1) 12/26/17 07:50 Triglycerides 48 mg/dL (0-149) 12/25/17 13:36 Cholesterol 158 mg/dL (0-199) 12/25/17 13:36 LDL Cholesterol Direct 117 mg/dL (0-129) 12/25/17 13:36 HDL Cholesterol 35 mg/dL (30-70) 12/25/17 13:36 Lipase 120 U/L (23-300) 12/24/17 03:13 TSH 3rd Generation 0.16 mIU/L (0.46-4.68) L 12/25/17 13:36 Urine Color Yellow (YELLOW) 12/24/17 03:06 Urine Clarity Hazy (Clear) 12/24/17 03:06 Urine pH 5.0 (5.0-8.0) 12/24/17 03:06 Ur Specific [place] 1.019 (1.003-1.030) 12/24/17 03:06 Urine Protein Negative mg/dL (NEGATIVE) 12/24/17 03:06 Urine Glucose (UA) Normal mg/dL (Normal) 12/24/17 03:06 Urine Ketones Trace mg/dL (NEGATIVE) 12/24/17 03:06 Urine Blood 1+ (NEGATIVE) H 12/24/17 03:06 Urine Nitrate Negative (NEGATIVE) 12/24/17 03:06 Urine Bilirubin Negative (NEGATIVE) 12/24/17 03:06 Urine Urobilinogen Normal mg/dL (0.2-1.0) 12/24/17 03:06 Ur Leukocyte Esterase Neg Paul/uL (Negative) 12/24/17 03:06 Urine WBC (Auto) 2 /hpf (0-5) 12/24/17 03:06 Urine RBC (Auto) 1 /hpf (0-3) 12/24/17 03:06 Ur Squamous Epith Cells 5 /hpf (0-5) 12/24/17 03:06 Urine HCG, Qual Negative (NEGATIVE) 12/24/17 03:00 Hepatitis A IgM Ab Negative (NEGATIVE) 12/26/17 07:50 Hep Bs Antigen Negative (NEGATIVE) 12/26/17 07:50 Hep B Core IgM Ab Negative (NEGATIVE) 12/26/17 07:50 Hepatitis C Antibody Negative (NEGATIVE) 12/26/17 07:50 Blood Type O POSITIVE 12/25/17 13:36 Antibody Screen Negative 12/25/17 13:36 Attending/Attestation - Attestation I have personally seen and examined this patient.: Yes I have fully participated in the care of the patient.: Yes I have reviewed all pertinent clinical information, including history, physical exam and plan: Yes Notes (Text): Patient seen, examined and case discussed with day-time resident. Patient seen at bedside this morning. Patient reports mild pain, but did not ask for pain medication overnight because she didn't realize she needed to ask. Given Tylenol 650mg PO X1 at bedside. Liver functions are decreasing. Hepatitis panel is negative. Resident has spoken with surgery team, patient is stable for discharge from their standpoint and recommend Oxycodone 5mg Q6H PRN severe pain 8 tabs dispensed for post-operative pain and follow-up in one week. Patient does not have a primary care doctor; patient referred to the [facility] in [place] for health care maintainance and monitor for resolution of liver function tests. This is a summary of patient's hospitalization. Please see EMR for further details. Discharge Diagnoses 1) Cholelithiasis-->Chronic Cholecystitis-->Stable * General Surgery consulted, Dr. Negro * Abdominal CT 12/24/17 - Cholelithiasis with mild gallbladder wall thickening concerning for acute cholecystitis. Consider ultrasound. * Abdominal US 12/24/17 - Cholelithiasis and sludge within the gallbladder with associated gallbladder wall thickening and edema. Gallbladder wall thickness measures up to 7.6 millimeters. Negative sonographic Stubbs's sign. Underlying cholecystitis cannot be excluded. Clinical correlation. Correlation with nuclear medicine study may be helpful if clinically indicated. Increased echogenicity of the hepatic parenchymal cortex suggestive for fatty infiltration versus hepatic parenchymal disease. * CXR - no acute disease. * 12/25/17: Laparoscopic Cholecystectomy * Discharged on postoperative day 1, stable from surgery standpoint for discharge. * Recommended follow-up in one week, and pain medication PRN provided 2) Obesity-->chronic * Hgba1c: 5.4 * TSH: 0.16--> advised to repeat TSH when establish care at the [facility] * Lipid panel: T, Cholestrol: 158, LDL: 117, HDL: 35 3) Transaminitis-->improving * Abdominal CT 12/24/17 - Cholelithiasis with mild gallbladder wall thickening concerning for acute cholecystitis. Consider ultrasound. * Abdominal US 12/24/17 - Cholelithiasis and sludge within the gallbladder with associated gallbladder wall thickening and edema. Gallbladder wall thickness measures up to 7.6 millimeters. Negative sonographic Stubbs's sign. Underlying cholecystitis cannot be excluded. Clinical correlation. Correlation with nuclear medicine study may be helpful if clinically indicated. Increased echogenicity of the hepatic parenchymal cortex suggestive for fatty infiltration versus hepatic parenchymal disease. * Downtrending * Upon discharge, monitor liver function tests to show resolution * 4) Prophylactic Care * DVT PPx - SCDs only: hold anticoagulation due to surgical procedure today * patient is low risk.
--- NOTE | 2017-12-26 18:43 | CP.PCM.PN ---
<Suzie Zamudio - Last Filed: 12/26/17 18:40> Subjective - Date & Time of Evaluation Date of Evaluation: 12/26/17 Time of Evaluation: 08:00 - Subjective Subjective: Surgery: Dr. Negro Pt seen and examined. POD#1 from lap kimber[place]. No acute overnight events. States she is feeling well. Tolerating regular diet and ambulating. Denies N/V, F/C. Objective - Vital Signs/Intake and Output Vital Signs (last 24 hours): Temp Pulse Resp BP Pulse Ox 98.3 F 62 20 95/56 L 95 12/26/17 15:18 12/26/17 15:18 12/26/17 15:18 12/26/17 15:18 12/26/17 15:18 Intake and Output: 12/26/17 12/26/17 06:59 18:59 Intake Total 1300 600 Balance 1300 600 - Labs Labs: 12/26/17 07:50 12/26/17 07:50 PT 12.0 SECONDS (9.7-12.2) 12/24/17 13:43 INR 1.1 12/24/17 13:43 - Constitutional Appears: Well, No Acute Distress - Head Exam Head Exam: ATRAUMATIC, NORMOCEPHALIC - ENT Exam ENT Exam: Mucous Membranes Moist - Respiratory Exam Respiratory Exam: NORMAL BREATHING PATTERN - Cardiovascular Exam Cardiovascular Exam: RRR - GI/Abdominal Exam GI & Abdominal Exam: Soft, Tenderness (around incisions ). absent: Distended, Rebound - Neurological Exam Neurological Exam: Alert, Awake, Oriented x3 - Skin Skin Exam: Dry, Warm Assessment and Plan - Assessment and Plan (Free Text) Assessment: 37F s/p lap kimberlee; POD#1 Plan: - ok to DC home - f/u in [address] Negro - No heavy lifting - d/w Dr. Marky Zamudio, PGY-3 <Alberto Negro - Last Filed: 12/28/17 15:29> Objective - Vital Signs/Intake and Output Vital Signs (last 24 hours): Temp Pulse Resp BP Pulse Ox 98.3 F 62 20 95/56 L 95 12/26/17 15:18 12/26/17 15:18 12/26/17 15:18 12/26/17 15:18 12/26/17 15:18 - Labs Labs: 12/26/17 07:50 12/26/17 07:50 PT 12.0 SECONDS (9.7-12.2) 12/24/17 13:43 INR 1.1 12/24/17 13:43 Attending/Attestation - Attestation I have personally seen and examined this patient.: Yes I have fully participated in the care of the patient.: Yes I have reviewed all pertinent clinical information, including history, physical exam and plan: Yes Notes (Text): Pt was seen and examined at bedside Agree with above note and assessment Pt is improving clinically DC home f.u as out pt c.w current mx Plan d.w pt in detail Risk and benefit explained in detail.
--- NOTE | 2017-12-26 23:27 | CARD ---
APPROVED REPORT EKG Measurement Heart [id number] <Conclusion> Sinus bradycardia with sinus arrhythmia Otherwise normal ECG
[2017-12-27 11:16] VITALS: BP 95/56; PULSE 62; RESP 20; TEMP 98.3
== END 2017-12-26 18:05 | disposition home or self-care (01) | DRG 494 ==
LOC: C.ER 02:04 → C.9E 10:16 → C.5S 12:57
PROVIDERS: ADMIT Hospitalist; ATTEND Hospitalist
PROC: 0FT44ZZ Resection of Gallbladder, Percutaneous Endoscopic Approach (ICD-10-PCS; principal; 2017-12-25 07:30)
DX: K80.00 Calculus of gallbladder with acute cholecystitis without obstruction (principal); E66.9 Obesity, unspecified; Z68.31 Body mass index [BMI] 31.0-31.9, adult; K76.0 Fatty (change of) liver, not elsewhere classified